=== PATIENT | male | born 1985 | race Hispanic/Latino ===

== ENCOUNTER 2017-06-10 18:55 | Emergency (ER) | payer BC, SELFPAY ==
--- NOTE | 2017-06-10 21:11 | RAD ---
THREE VIEWS OF THE RIGHT MIDDLE FINGER: History: Third digit injury with pain. Patient was wrestling with a friend. FINDINGS: Three views of the right middle finger shows a spiral fracture of the proximal phalanx which extends to the metacarpal phalangeal joint with approximately 50% joint surface involvement. Surrounding soft tissue swelling is seen. No other fractures are seen. No dislocation is present. IMPRESSION: Intraarticular proximal phalanx fracture of the middle finger. POS: [facility]
== END 2017-06-10 21:28 | disposition home or self-care (01) ==
LOC: ERS 18:55
DX: S62.612A Displaced fracture of proximal phalanx of right middle finger, initial encounter for closed fracture (principal); F17.210 Nicotine dependence, cigarettes, uncomplicated; X58.XXXA Exposure to other specified factors, initial encounter; Y93.72 Activity, wrestling
CPT/HCPCS: 29125

== ENCOUNTER 2017-06-18 12:47 | Outpatient (CLI) | payer BC ==
[2017-06-18 13:34] LABS: #Eosinphils 0.2 thou/uL (0.0-0.7); #Lymphocytes 1.5 thou/uL (1.20-3.40); #Monocytes 0.7 thou/uL (0.11-0.59); #Neutrophils 8.9 thou/uL (1.40-6.50); %Basophils 0.2 % (0.0-1.0); %Monocytes 6.2 % (0.0-10.0); %Neutrophils 78.5 % (42.0-75.0); Hemoglobin 16.2 g/dL (14.0-18.0); Mean Corpuscular HGB CONC 34.9 g/dL (32.0-36.0); Mean Corpuscular Hemoglobin 31.5 pg (27.0-31.0); Mean Corpuscular Volume 90.1 fl (80.0-94.0); Mean Platelet Volume 6.6 fL (7.4-10.4); Platelet Count 332 thou/uL (130-400); RBC Distribution Width 11.8 % (11.5-14.5); Red Blood Cell (RBC) Count 5.15 mill/uL (4.70-6.10); White Blood Cell (WBC) Count 11.3 thou/uL (4.8-10.8)
[2017-06-18 14:04] LABS: Anion Gap 12 mmol/L (10-20); BUN (Urea Nitrogen) 15 mg/dL (8.9-20.6); Calc. Creatinine Clearance 0 mL/min (70-130); Calcium 9.8 mg/dL (7.8-10.44); Carbon Dioxide 27 mmol/L (22-29); Chloride 103 mmol/L (98-107); Estimated GFR-MDRD Greater than 90; Glucose 78 mg/dL (70-105); Potassium 4.3 mmol/L (3.5-5.1); Sodium 138 mmol/L (136-145)
== END 2017-06-18 12:48 | disposition home or self-care (01) ==
LOC: LABBT 12:47
PROVIDERS: ATTEND Orthopaedic Surgery Hand Surgery
DX: Z01.812 Encounter for preprocedural laboratory examination (principal); S62.612A Displaced fracture of proximal phalanx of right middle finger, initial encounter for closed fracture
CPT/HCPCS: 80048; 85025

== ENCOUNTER 2017-06-19 06:49 | Day surgery (SDC) | payer BC ==
[2017-06-18 12:09] VITALS: BMI 28.1
[2017-06-19] MEDS ORDERED: CEFAZOLIN/Water 2 GM/20 ML SYRINGE ONE (07:17)
[2017-06-19] MEDS ORDERED: Fentanyl 100 MCG/2 ML VIAL ONE (08:46)
[2017-06-19] MEDS ORDERED: Metoclopramide HCl 10 MG/2 ML VIAL ONE ×2 (08:47→16:14)
[2017-06-19] MEDS ORDERED: HYDROmorphone 0.5 MG/0.5 ML SYRINGE ONE (08:47)
[2017-06-19] MEDS ORDERED: Ondansetron HCl/PF 4 MG/2 ML Vial ONE ×2 (08:47→16:14)
[2017-06-19] MEDS ORDERED: Bacitracin Zinc Ointment 30 gm TUBE ONE (08:50)
[2017-06-19] MEDS ORDERED: Betamet Acet/Betamet Na Ph 30 MG/5 ML VIAL ONE (08:50)
[2017-06-19] MEDS ORDERED: Bupivacaine PF 0.5% 30 ML VIAL ONE (08:50)
[2017-06-19] MEDS ORDERED: Ketorolac Tromethamine 30 MG/ML VIAL ONE ×2 (11:30→16:14)
--- NOTE | 2017-06-19 12:52 | RAD ---
RIGHT FINGERS INTEROPERATIVE FLUOROSCOPY 2 VIEWS: HISTORY: Finger fracture. FINDINGS: Intraoperative fluoroscopy was provided for internal fixation as performed by Dr. Pate. Multiple spot fluoroscopic images show multiple screws transfixing the fracture of the proximal phalanx of th e middle finger. Fluoro time= 61 seconds. POS: [facility]
[2017-06-19] MEDS ORDERED: Lidocaine 1% PF 5 ML VIAL ONE (16:14)
[2017-06-19] MEDS ORDERED: ePHEDrine/0.9% NaCl/PF SYRINGE 50 mg/10 ml ONE (16:14)
[2017-06-19] MEDS ORDERED: Dexamethasone 20 MG/5 ML VIAL ONE (16:14)
[2017-06-19] MEDS ORDERED: PROPOFOL 200 MG/20 ML VIAL ONE (16:14)
--- NOTE | 2017-06-20 08:28 | OP ---
DATE OF PROCEDURE: 06/19/2017 PREOPERATIVE DIAGNOSIS: Right long finger 4-part comminuted fracture, displaced in 2 planes with mal rotation. POSTOPERATIVE DIAGNOSIS: Right long finger 4-part comminuted fracture, displaced in 2 planes with ma lrotation. FINDINGS: A 4-part fracture, but oblique limbs and long length, makes lag screw technique possible. PROCEDURE PERFORMED: 1. Open reduction internal fixation intra-articular proximal phalanx fracture, right long finger/mid dle finger procedure particular at the metacarpophalangeal joint. 2. C-arm supervision less than or equal to 1 hour. SURGEON: Wilmer Pate MD INDICATIONS: Displacement and malrotation with the long finger overlapping the index finger and this fracture pattern and radiographs made the displacement in 2 planes plus the angulation plus the malr otation indication for surgical intervention. DESCRIPTION OF PROCEDURE: After successful general endotracheal anesthesia, the limb was prepped and draped. We then gave him 10 mL of 0.5% Marcaine metacarpophalangeal joint block level and proceeded with closed reduction attempt x3. Each time, we could easily achieve the sagittal plane correction that was nearly anatomical and frontal plane, but never both simultaneously. Thus, we felt that the malrotation process with hematoma, we could not achieve closed reduction, so we discarded this method and exsanguinated the limb, inflated the tourniquet to 250 mmHg pressure, and then made a modified B runer incision over the dorsum, carried through the skin and subcutaneous tissue and split the extens or tendon in line with the fracture longitudinally, so we could then work through the tendon defect. We a very thick layer of periosteum and reactive tissue, got to the fracture and found the re was interfragmentary hematoma, which we then removed, irrigated and was able to perform an anatomi c reduction with no malrotation. We held this with two clamps and began a series of lag screw altern ating with alternating with lag screw, alternating with lag technique and after this frac ture was stable to 110 degrees passive flexion and full extension. Deflated tourniquet, obtained hemostasis, irrigated the wound and closed the thick periosteum with 4- 0 Monocryl in interrupted fashion, 4-0 Prolene was then used for running split extensor mechanism rep air and then 4-0 nylon used for epidermal closure after hemostasis again reaffirmed correct. The pat ient then left the operating room without evidence of anesthetic or operative complications in a bulk y dressing and a short arm splint.
== END 2017-06-19 13:30 | disposition home or self-care (01) ==
LOC: SDC 06:49
PROVIDERS: ATTEND Orthopaedic Surgery Hand Surgery
PROC: 0PST04Z Reposition Right Finger Phalanx with Internal Fixation Device, Open Approach (ICD-10-PCS; principal; 2017-06-19)
DX: S62.612A Displaced fracture of proximal phalanx of right middle finger, initial encounter for closed fracture (principal); S60.031A Contusion of right middle finger without damage to nail, initial encounter; F17.210 Nicotine dependence, cigarettes, uncomplicated
CPT/HCPCS: 76001; 96374; C1713; J0131; J0702; J1100; J1170; J1885; J2001; J2405; J2704; J2765; J3010; S0020

== ENCOUNTER 2017-12-01 02:32 | Emergency (ER) | payer BC | END 2017-12-01 03:16 | LOC: ERS 02:32 | DX: Z04.1 Encounter for examination and observation following transport accident (principal); F17.210 Nicotine dependence, cigarettes, uncomplicated | CPT/HCPCS: 99283 ==